=== PATIENT | male | born 1970 | race Caucasian/White ===

== ENCOUNTER 2017-01-21 16:42 | Emergency (ER) | payer SELFPAY ==
[~2017-01-21] VITALS: Ht 190.5 cm; Wt 115.7 kg
[2017-01-21 17:02] VITALS: BP 229/14
[2017-01-21] MEDS ORDERED: IPRATROPIUM NEB FS 0.5 MG/2.5 ML AMPUL.NEB ONE (17:10)
[2017-01-21] MEDS ORDERED: ALBUTEROL FS 2.5 MG/3 ML VIAL.NEB ONE (17:10)
[2017-01-21] MEDS ORDERED: DEXAMETHASONE SOD PHOSPHATE 10 MG/ML VIAL ONE (17:12)
[2017-01-21] MEDS ORDERED: PENICILLIN G BENZATHINE 2.4 MMU/4 ML ML IM ONE ×2 (17:13→17:30)
[2017-01-21] MEDS ORDERED: ACETAMINOPHEN ES 500 MG TABLET ONE (17:13)
[2017-01-21] MEDS ORDERED: DEXAMETHASONE SOD PHOSPHATE 10 MG/ML VIAL IM ONE (17:30)
[2017-01-21] MEDS ORDERED: ALBUTEROL FS 2.5 MG/3 ML VIAL.NEB CONTNEB ONE (17:30)
[2017-01-21] MEDS ORDERED: ACETAMINOPHEN ES 500 MG TABLET PO ONE (17:30)
[2017-01-21] MEDS ORDERED: IPRATROPIUM NEB FS 0.5 MG/2.5 ML AMPUL.NEB NEB ONE (17:30)
== END 2017-01-21 18:17 | disposition home or self-care (01) ==
LOC: ER 16:45
DX: J02.9 Acute pharyngitis, unspecified (principal); F17.200 Nicotine dependence, unspecified, uncomplicated
CPT/HCPCS: 94640; 96372 ×2; 99284; A4606; J0558; J1100; Z7610

== ENCOUNTER 2017-02-21 13:35 | Emergency (ER) | payer SELFPAY ==
[~2017-02-21] VITALS: Ht 190.5 cm; Wt 117.9 kg
[2017-02-21] MEDS ORDERED: LABETALOL 20 MG/4 ML VIAL ONE ×3 (14:46→15:32)
[2017-02-21] MEDS ORDERED: LABETALOL 20 MG/4 ML VIAL IV ONE ×2 (15:00→15:30)
[2017-02-21 16:04] VITALS: BP 174/117
== END 2017-02-21 16:26 | disposition home or self-care (01) ==
LOC: ER 13:41
DX: Z76.0 Encounter for issue of repeat prescription (principal); I10 Essential (primary) hypertension; F17.210 Nicotine dependence, cigarettes, uncomplicated
CPT/HCPCS: 96374; 96376; 99284; A4606; J3490 ×3; Z7610